=== PATIENT | female | born 1945 | race Caucasian/White ===

== ENCOUNTER 2020-07-06 08:33 | Emergency (ER) | payer OTHER ==
[~2020-07-06] VITALS: Ht 165.1 cm; Wt 85.7 kg
[~2020-07-06 08:33] MED LIST: HYDR-3293 PO; RANI-745 PO; SIMV-31 PO
[2020-07-06 08:45] VITALS: BP 120/83
--- NOTE | 2020-07-06 08:50 | NUR ---
PT C/O CONSISTENT HEADACHE WITH PRESSURE SENSATION, PRODUCTIVE COUGH FOR ONE WEEK. DENIES FEVER, N/V/D, SORE THROAT, OR ABDOMINAL PAIN. REPORTS SHE WAS EXPOSED TO SOMEONE WHO WAS DIAGNOSED WITH COVID-19 INFECTION. SKIN IS PINK/WARM/DRY; AAOX4 WITH EVEN AND STEADY GAIT; LUNGS CLEAR BL; HR EVEN AND REGULAR; PT DENIES ANY FEVER, CP, SOB, OR COUGH AT THIS TIME; PATIENT STATES PAIN OF 10/10 AT THIS TIME; VSS; PATIENT POSITIONED FOR COMFORT; HOB ELEVATED; BEDRAILS UP X2; BED DOWN. ER MD MADE AWARE OF PT STATUS.
[2020-07-06] MEDS ORDERED: ACETAMINOPHEN 325 MG TAB PO ONE (08:55)
[2020-07-06] MEDS ORDERED: KETOROLAC 15 MG/ML VIAL IVP ONE (08:55)
[2020-07-06] MEDS ORDERED: ONDANSETRON 4 MG/2 ML VIAL IVP ONE (08:55)
[2020-07-06] MEDS ORDERED: NACL 0.9% 1,000 ML IV ONE (08:55)
--- NOTE | 2020-07-06 09:16 | NUR ---
PT HAS BEEN TAKING TO CT SCAN VIA [facility].
[2020-07-06 09:44] LABS: BASOPHILS % (AUTO) 0.3 % (0.0-2.0); EOSINOPHILS % (AUTO) 0.1 % (0.0-4.0); HEMATOCRIT 38.7 % (36-48); HEMOGLOBIN 12.7 g/dL (12.0-16.0); LYMPHOCYTES # (AUTO) 0.9 K/uL (2.5-16.5); LYMPHOCYTES % (AUTO) 18.9 % (20.5-51.1); MEAN CORPUSCULAR HEMOGLOBIN 30 pg (27-31); MEAN CORPUSCULAR HGB CONC 33 g/dL (33-37); MEAN CORPUSCULAR VOLUME 90.5 fL (80-94); MONOCYTES # (AUTO) 0.3 K/uL (0.8-1.0); MONOCYTES % (AUTO) 5.6 % (1.7-9.3); NEUTROPHILS # (AUTO) 3.4 K/uL (1.8-7.7); NEUTROPHILS % (AUTO) 75.1 % (42.2-75.2); PLATELET COUNT (AUTO) 189 K/uL (140-450); RED BLOOD CELL COUNT(AUTO) 4.28 MIL/uL (4.20-5.40); WHITE BLOOD COUNT (AUTO) 4.5 K/uL (4.8-10.8)
--- NOTE | 2020-07-06 09:46 | NUR ---
CECY SWAB OBTAINED AND SENT TO THE LAB.
[2020-07-06 09:53] LABS: ANION GAP 13.9 (8-16); CHLORIDE 102 mmol/L (98-107); CREATININE 0.7 mg/dL (0.6-1.3); GLUCOSE 118 mg/dL (74-106); POTASSIUM 3.9 mmol/L (3.5-5.1); SODIUM SERUM 137 mmol/L (136-145); UREA NITROGEN, BLOOD 11 mg/dL (7-18)
--- NOTE | 2020-07-06 10:26 | NUR ---
Positive shay result received from lab via phone call. Dr. Martin notified.
--- NOTE | 2020-07-06 11:50 | NUR ---
flu a&b and ua has been canceled per dr. duval's order.
[2020-07-06 11:56] VITALS: BP 125/67
--- NOTE | 2020-07-06 11:56 | NUR ---
Patient discharged with v/s stable. Written and verbal after care instructions given and explained. Patient alert, oriented and verbalized understanding of instructions. Ambulatory with steady gait. All questions addressed prior to discharge. ID band removed. Patient advised to follow up with PMD. Rx of zofran and tessalon given. Patient educated on indication of medication including possible reaction and side effects. Opportunity to ask questions provided and answered.
== END 2020-07-06 11:56 | disposition home or self-care (01) ==
LOC: MED 08:33
DX: U07.1 COVID-19 (principal); B34.9 Viral infection, unspecified; Z79.899 Other long term (current) drug therapy; Z90.49 Acquired absence of other specified parts of digestive tract
CPT/HCPCS: 36415; 70450; 71045; 80048; 84484; 85025; 87426; 93005; 96361; 96374; 96375; 99285; J1885; J2405; J7030; Q0092

== ENCOUNTER 2021-04-05 21:33 | Emergency (ER) | payer OTHER ==
[~2021-04-05] VITALS: Ht 157.5 cm; Wt 88.5 kg
[2021-04-05 21:38] VITALS: BP 142/69
[2021-04-05] MEDS ORDERED: KETOROLAC 60 MG/2 ML VIAL IM ONE (22:10)
[2021-04-05] MEDS ORDERED: ACET-8386 PO (23:24)
[2021-04-05] MEDS ORDERED: IBUP-2213 PO (23:24)
[2021-04-05] MEDS ORDERED: MORPHINE SULFATE 4 MG/ML SYR IM ONE (23:25)
[2021-04-06 00:28] VITALS: BP 157/82
== END 2021-04-06 00:28 | disposition home or self-care (01) ==
LOC: MED 21:33
DX: S42.401A Unspecified fracture of lower end of right humerus, initial encounter for closed fracture (principal); I10 Essential (primary) hypertension; W19.XXXA Unspecified fall, initial encounter; Y93.89 Activity, other specified; Y92.89 Other specified places as the place of occurrence of the external cause; Y99.8 Other external cause status
CPT/HCPCS: 29105; 72100; 73080; 96374; 96375; 99284; J1885; J2270

== ENCOUNTER 2021-09-17 16:52 | Emergency (ER) | payer OTHER ==
[~2021-09-17] VITALS: Ht 157.5 cm; Wt 88.5 kg
[~2021-09-17 16:52] MED LIST changes: +ACET-8386 PO; +IBUP-2213 PO
[2021-09-17 17:19] VITALS: BP 149/90
[2021-09-17] MEDS ORDERED: HYDROcodone/APAP 7.5/325 MG 1 TAB PO ONE (17:55)
--- NOTE | 2021-09-17 18:23 | NUR ---
Patient wheelchair assisted to bed 3.
--- NOTE | 2021-09-17 18:35 | NUR ---
76/F BIB FAMILY WITH C/O RIGHT UPPER ARM PAIN. PATIENT STATES SHE SLIPPED AND FELL AT HOME TODAY LANDING ON HER RIGHT ARM, REPORTS 10/10 THROBBING PAIN THAT WORSENS WITH MOVEMENT. PATIENT DENIES HEAD INJURY OR LOC, DENIES TAKING ANYTHING FOR PAIN PRIOR TO ARRIVAL TO ED. PATIENT DENIES N/V, DIZZINESS, HEADACHE OR BLURRED VISION, PATIENT UNABLE TO MOVE RIGHT ARM DUE TO PAIN, SENSATION AND PULSES EQUAL BILATERALLY, CAP REFILL LESS THAN 3 SECONDS ON ALL DIGITS.
--- NOTE | 2021-09-17 18:42 | NUR ---
pt placed in sling rn notified
[2021-09-17] MEDS ORDERED: HYDR-5080 PO (19:04)
[2021-09-17] MEDS ORDERED: IBUP-2213 PO (19:04)
--- NOTE | 2021-09-17 19:20 | NUR ---
RECEIVED REPORT FROM [facility] FOR CONTINUITY OF CARE
--- NOTE | 2021-09-17 19:20 | NUR ---
Pt report given to PRAVEENA RN. Transfer of care at this time.
[2021-09-17] MEDS ORDERED: MORPHINE SULFATE 4 MG/ML SYR IM ONE (19:40)
[2021-09-17 19:50] VITALS: BP 145/67
--- NOTE | 2021-09-17 19:50 | NUR ---
Patient discharged with v/s stable. Written and verbal after care instructions given and explained. Patient alert, oriented and verbalized understanding of instructions. Ambulatory with steady gait. All questions addressed prior to discharge. ID band removed. Patient advised to follow up with PMD. Rx of NORCO 7.5-325 and IBUPROFEN given. Patient educated on indication of medication including possible reaction and side effects. Opportunity to ask questions provided and answered.
== END 2021-09-17 19:50 | disposition home or self-care (01) ==
LOC: MED 16:52
DX: S42.291A Other displaced fracture of upper end of right humerus, initial encounter for closed fracture (principal); I10 Essential (primary) hypertension; Z90.49 Acquired absence of other specified parts of digestive tract; Z98.890 Other specified postprocedural states; Z79.891 Long term (current) use of opiate analgesic; Z79.1 Long term (current) use of non-steroidal anti-inflammatories (NSAID); Z79.899 Other long term (current) drug therapy; W10.8XXA Fall (on) (from) other stairs and steps, initial encounter; Y92.009 Unspecified place in unspecified non-institutional (private) residence as the place of occurrence of the external cause; Y93.89 Activity, other specified; Y99.8 Other external cause status
CPT/HCPCS: 73060; 96372; 99283; J2270

== ENCOUNTER 2023-08-15 14:37 | Observation (INO) | payer OTHER ==
[~2023-08-15] VITALS: Ht 157.5 cm; Wt 87.5 kg
[~2023-08-15 14:37] MED LIST changes: -ACET-8386 PO; +ACET-8905 PO; +FURO-572 PO; +HYDR-5080 PO
[2023-08-15 15:05] VITALS: BP 139/75; PULSE 63; RESP 18; TEMP 98.5; O2SAT 98
[2023-08-15] MEDS ORDERED: NACL 0.9% 1,000 ML IV SCH (16:05)
[2023-08-15] MEDS ORDERED: VANCOMYCIN 1,000 MG in DEXTROSE 5% 250 ML IV ONE (16:05)
[2023-08-15] MEDS ORDERED: VANCOMYCIN 1,000 MG VIAL ONE (16:36)
[2023-08-15 16:56] LABS: BASOPHILS # (AUTO) 0.1 K/uL (0.00-0.22); BASOPHILS % (AUTO) 2.5 % (0.0-2.0); EOSINOPHILS # (AUTO) 0.2 K/uL (0-0.4); EOSINOPHILS % (AUTO) 3.6 % (0.0-4.0); HEMATOCRIT 36.2 % (36-48); HEMOGLOBIN 11.8 g/dL (12.0-16.0); LYMPHOCYTES # (AUTO) 1.3 K/uL (2.5-16.5); LYMPHOCYTES % (AUTO) 30.4 % (20.5-51.1); MEAN CORPUSCULAR HEMOGLOBIN 29 pg (27-31); MEAN CORPUSCULAR HGB CONC 33 g/dL (33-37); MEAN CORPUSCULAR VOLUME 88.7 fL (80-94); MONOCYTES # (AUTO) 0.3 K/uL (0.8-1.0); NEUTROPHILS # (AUTO) 2.4 K/uL (1.8-7.7); NEUTROPHILS % (AUTO) 55.5 % (42.2-75.2); PLATELET COUNT (AUTO) 228 K/uL (140-450); RED BLOOD CELL COUNT(AUTO) 4.08 MIL/uL (4.20-5.40); RED CELL DISTRIBUTION WIDTH 13.8 % (11.6-13.7); WHITE BLOOD COUNT (AUTO) 4.3 K/uL (4.8-10.8)
[2023-08-15 17:10] LABS: ALANINE AMINOTRANSFERASE 21 U/L (12-78); ALBUMIN 3.7 g/dL (3.4-5.0); ALKALINE PHOSPHATASE 127 U/L (50-136); ANION GAP 11.9 (8-16); ASPARTATE AMINOTRANSFERASE 18 U/L (15-37); CALCIUM 8.8 mg/dL (8.5-10.1); CARBON DIOXIDE 28.7 mmol/L (21-32); CHLORIDE 102 mmol/L (98-107); CREATININE 0.8 mg/dL (0.6-1.3); GLUCOSE 96 mg/dL (74-106); POTASSIUM 3.6 mmol/L (3.5-5.1); SODIUM SERUM 139 mmol/L (136-145); TOTAL BILIRUBIN 0.4 mg/dL (0.0-1.0); TOTAL PROTEIN, SERUM 7.4 g/dL (6.4-8.2); UREA NITROGEN, BLOOD 23 mg/dL (7-18)
[2023-08-15] MEDS ORDERED: VANCOMYCIN PER PHARMACY MC PRN (19:10)
[2023-08-15] MEDS ORDERED: ACETAMINOPHEN 325 MG TAB PO PRN (19:10)
[2023-08-15] MEDS ORDERED: KCL 20 MEQ IN 100 mL PREMIX 200 ML IV PRN (19:10)
[2023-08-15] MEDS ORDERED: MORPHINE SULFATE 2 MG/ML SYR IVP PRN (19:10)
[2023-08-15] MEDS ORDERED: POTASSIUM CHLORIDE 10 MEQ TABER PO PRN (19:10)
[2023-08-15] MEDS ORDERED: MAG SULF 2000 MG/WATER PREMIX 50 ML IV PRN (19:10)
[2023-08-15] MEDS ORDERED: HYDROcodone/APAP 5/325 MG 1 TAB TAB PO PRN (19:10)
[2023-08-15] MEDS ORDERED: MAGNESIUM OXIDE 400 MG TAB PO PRN (19:10)
[2023-08-15] MEDS ORDERED: cefTRIAXone 1,000 MG VIAL ONE (19:54)
[2023-08-15] MEDS: NACL 0.9% 1,000 ML IV SCH ×2 (20:14→23:00)
[2023-08-15] MEDS ORDERED: SUCCINYLCHOLINE CHLORIDE 200 MG/10 ML VIAL IVP ONE ×2 (21:00→21:49)
[2023-08-15] MEDS ORDERED: SEVOFLURANE 250 ML BTL INH ONE (21:00)
[2023-08-15] MEDS ORDERED: ROCURONIUM 50 MG/5 ML VIAL IV ONE ×2 (21:00→21:49)
[2023-08-15] MEDS ORDERED: PROPOFOL 200 MG/20 ML VIAL IV ONE (21:00)
[2023-08-15] MEDS ORDERED: ceFAZolin 2,000 MG VIAL ONE ×2 (21:00→21:16)
[2023-08-15] MEDS ORDERED: fentaNYL citrate 0.05 MG/ML - 50mL vial IV ONE (21:00)
[2023-08-15] MEDS ORDERED: MIDAZOLAM MDV 50 MG/10 ML VIAL IV ONE (21:00)
[2023-08-15] MEDS ORDERED: ONDANSETRON 4 MG/2 ML VIAL ONE ×2 (21:00→21:49)
[2023-08-15] MEDS ORDERED: DEXAMETHASONE 10 MG/ML VIAL ONE (21:00)
[2023-08-15] MEDS ORDERED: BUPIVACAINE-MPF 0.25% 30 ML VIAL INJ ONE (21:16)
[2023-08-15] MEDS ORDERED: LIDOCAINE/EPI MPF 1%1:200000 30 ML VIAL INJ ONE (21:16)
[2023-08-15] MEDS ORDERED: MIDAZOLAM 2 MG/2 ML VIAL ONE (21:23)
[2023-08-15] MEDS ORDERED: fentaNYL citrate 0.05 MG/ML VIAL ONE (21:23)
[2023-08-15] MEDS ORDERED: DEXAMETHASONE 4 MG/ML VIAL ONE (21:49)
[2023-08-15] MEDS ORDERED: HYDROmorphone PFS 2 MG/ML SYR ONE (22:09)
[2023-08-15] MEDS ORDERED: ONDANSETRON 4 MG/2 ML VIAL IVP PRN (22:10)
[2023-08-15] MEDS: HYDROmorphone 1 MG/ML AMP IVP PRN ×2 (22:10→22:20)
[2023-08-15] MEDS ORDERED: MEPERIDINE 25 MG/ML SYR IVP PRN (22:10)
[2023-08-15] MEDS ORDERED: oxyCODONE/APAP 5/325 MG 1 TAB TAB PO PRN (22:15)
[2023-08-15 22:45] VITALS: BP 109/56; PULSE 59; PULSE 63; RESP 16; RESP 18; TEMP 96.8; O2SAT 96; O2SAT 98
[2023-08-15 23:00] VITALS: BP 114/56; PULSE 58; RESP 18; TEMP 96.7; O2SAT 96
[2023-08-15 23:15] VITALS: BP 102/59; PULSE 59; RESP 18; TEMP 97; O2SAT 95
[2023-08-15 23:30] VITALS: BP 102/74; PULSE 58; RESP 18; TEMP 96.8; O2SAT 94
[2023-08-16] VITALS: BP 122/73; PULSE 64; RESP 18; TEMP 97; O2SAT 94
[2023-08-16] MEDS: ONDANSETRON 4 MG/2 ML VIAL IVP PRN ×2 (01:04→06:49)
[2023-08-16 07:00] LABS: BASOPHILS % (AUTO) 0.3 % (0.0-2.0); HEMOGLOBIN 11.9 g/dL (12.0-16.0); LYMPHOCYTES # (AUTO) 0.7 K/uL (2.5-16.5); LYMPHOCYTES % (AUTO) 10.2 % (20.5-51.1); MEAN CORPUSCULAR HEMOGLOBIN 29 pg (27-31); MEAN CORPUSCULAR HGB CONC 33 g/dL (33-37); MEAN CORPUSCULAR VOLUME 89.3 fL (80-94); MONOCYTES # (AUTO) 0.1 K/uL (0.8-1.0); NEUTROPHILS % (AUTO) 88.5 % (42.2-75.2); PLATELET COUNT (AUTO) 230 K/uL (140-450); RED BLOOD CELL COUNT(AUTO) 4.03 MIL/uL (4.20-5.40); RED CELL DISTRIBUTION WIDTH 13.5 % (11.6-13.7); WHITE BLOOD COUNT (AUTO) 6.7 K/uL (4.8-10.8)
[2023-08-16 07:25] LABS: ALANINE AMINOTRANSFERASE 31 U/L (12-78); ALBUMIN 3.3 g/dL (3.4-5.0); ALKALINE PHOSPHATASE 130 U/L (50-136); ASPARTATE AMINOTRANSFERASE 37 U/L (15-37); CALCIUM 8.4 mg/dL (8.5-10.1); CARBON DIOXIDE 25.1 mmol/L (21-32); CHLORIDE 106 mmol/L (98-107); CREATININE 0.6 mg/dL (0.6-1.3); GLUCOSE 146 mg/dL (74-106); MAGNESIUM 2.1 mg/dL (1.8-2.4); POTASSIUM 4.1 mmol/L (3.5-5.1); SODIUM SERUM 140 mmol/L (136-145); TOTAL BILIRUBIN 0.4 mg/dL (0.0-1.0); TOTAL PROTEIN, SERUM 6.8 g/dL (6.4-8.2); UREA NITROGEN, BLOOD 17 mg/dL (7-18)
[2023-08-16 08:00] VITALS: BP 114/52; PULSE 68; PULSE 93; RESP 18; TEMP 97.1; O2SAT 95; O2SAT 97
[2023-08-16] MEDS ORDERED: VANCOMYCIN 1,000 MG in DEXTROSE 5% 250 ML IV SCH (10:00)
[2023-08-16] MEDS ORDERED: LEVO-481 PO (12:39)
[2023-08-16] MEDS ORDERED: DYN250 PO (12:39)
[2023-08-16 12:48] VITALS: BP 114/52; PULSE 68; RESP 18; TEMP 97.1
== END 2023-08-16 13:26 | disposition home or self-care (01) ==
LOC: MED 14:37 → MMU 19:34 → MTU 20:31
PROVIDERS: ADMIT Hospitalist; ATTEND Hospitalist
DX: L03.115 Cellulitis of right lower limb (principal); I10 Essential (primary) hypertension; E78.5 Hyperlipidemia, unspecified; Z79.899 Other long term (current) drug therapy
CPT/HCPCS: 10140; 36415; 73590; 80053; 83605; 83735; 85025; 85651; 86140; 87040; 87070; 87075; 87081; 87086; 87186; 87205; 96365; 96366; 96367; 96375; 96376; 99284; G0378; J0330; J0696; J1100; J1170; J2001; J2250; J2405; J2704; J3010; J3370; J3490; J7030; J7060; J1644